=== PATIENT | female | born 1955 | race Caucasian/White ===

== ENCOUNTER 2018-07-13 15:32 | Emergency (ER) | payer BC ==
[~2018-07-13] VITALS: Ht 167.6 cm; Wt 61.5 kg
[2018-07-13 15:56] VITALS: Ht 167.6 cm; Wt 61.5 kg
[2018-07-13 17:12] LABS: BASOPHIL % 0.9 % (0-2); PLATELET COUNT 343 x10^3mcL (130-400); RED CELL DISTRIBUTION WIDTH 12.5 % (11.5-14.5)
[2018-07-13 17:27] LABS: CALCIUM 9.5 mg/dL (8.5-10.1); CARBON DIOXIDE 28.7 mmol/L (21-32); CHLORIDE SERUM 103 mmol/L (98-107); CREATININE SERUM 0.8 mg/dL (0.6-1.0); GFR1 > 60 mL/min; GLUCOSE SERUM 109 mg/dL (74-106); SODIUM SERUM 140 mmol/L (136-145)
[2018-07-13 17:36] LABS: ALBUMIN 4.3 g/dL (3.4-5.0); ALKALINE PHOSPHATASE 93 U/L (46-116); ALT/SGPT 28 U/L (14-59); AST/SGOT 17 U/L (15-37); BILIRUBIN TOTAL 0.2 mg/dL (0.20-1.00); TOTAL PROTEIN, SERUM 7.8 g/dL (6.4-8.2)
[2018-07-13 17:59] LABS: ERYTHROCYTE SED RATE 11 mm/hr (0-30)
[2018-07-13 19:05] VITALS: BP 153/62
== END 2018-07-13 19:05 | disposition home or self-care (01) ==
LOC: ED 15:32
PROVIDERS: Emergency Medicine
DX: R20.2 Paresthesia of skin (principal); I10 Essential (primary) hypertension; M79.602 Pain in left arm; Z88.0 Allergy status to penicillin; Z88.2 Allergy status to sulfonamides; Z88.1 Allergy status to other antibiotic agents; Z98.890 Other specified postprocedural states
CPT/HCPCS: 36415